=== PATIENT | male | born 1975 | race Hispanic/Latino ===

== ENCOUNTER 2016-11-12 11:55 | Emergency (ER) | payer OTHER ==
[~2016-11-12] VITALS: Ht 165.1 cm; Wt 90.9 kg
[~2016-11-12 11:55] MED LIST: CARAFATE100 MG/ML PO; FLEXERIL10 MG PO; ILOTYCIN1 GM BOTH EYES; LO-DOSE ASPIRIN81 M1 PO; MOTRIN600 MG PO; MUPIROCIN15 GM TP; NICODERM CQ1 EAC1 TD; OXYCONTIN10 MG PO; PANTOPRAZOLE SO40 MG PO; PERCOCET 5/31 TABLET PO; PRILOSEC20 MG PO; PRILOSEC40 MG PO; RANITIDINE HCL150 MG PO; SKELAXIN800 MG PO; ULTRAM50 MG PO; ZANTAC150 MG PO
[2016-11-12] MEDS ORDERED: LO-DOSE ASPIRIN81 M2 PO (13:13)
[2016-11-12 13:38] LABS: HEMATOCRIT 43.4 % (38.0-50.0); MCH 30.9 PG (29.0-34.0); MCHC 34.3 G/DL (30.0-36.0); PLATELET COUNT 339 K/uL (156-360); RBC DIS.WIDTH-CV 12.4 % (11.8-14.6); RBC DIS.WIDTH-SD 41.1 % (39-53); RED BLOOD COUNT 4.82 M/uL (4.00-5.50); WHITE BLOOD COUNT 7.3 K/uL (4.1-10.2)
[2016-11-12 13:48] LABS: CHLORIDE 109 mEq/L (99-109); SODIUM 138 mEq/L (136-147)
[2016-11-12 13:49] LABS: GLUCOSE 103 mg/dL (70-99)
[2016-11-12 13:51] LABS: ANION GAP 10 MEQ/L (2-14)
[2016-11-12 13:53] LABS: GFR ESTIMATE (CALCULATED) > 59 mL/min/
[2016-11-12 13:54] LABS: UREA NITROGEN (BUN) 15 mg/dL (9-23)
[2016-11-12 13:59] LABS: TROP-I INTERPRETATION NEGATIVE; TROPONIN-I 0.02 ng/mL (0.0-0.30)
[2016-11-12] MEDS ORDERED: RANITIDINE HCL150 MG PO (16:14)
[2016-11-12] MEDS ORDERED: PROTONIX40 MG PO (16:15)
[2016-11-12 18:11] VITALS: BP 135/76
== END 2016-11-12 18:17 | disposition left against medical advice (07) ==
LOC: EME 11:55
DX: G45.9 Transient cerebral ischemic attack, unspecified (principal); G43.909 Migraine, unspecified, not intractable, without status migrainosus; F17.200 Nicotine dependence, unspecified, uncomplicated
CPT/HCPCS: 70450; 71010; 71275; 80048; 84484; 85027; 93005; 99281; 99284; J1200; J7030

== ENCOUNTER 2016-11-24 19:05 | Emergency (ER) | payer OTHER ==
[~2016-11-24] VITALS: Ht 165.1 cm; Wt 95.3 kg
[~2016-11-24 19:05] MED LIST changes: +LO-DOSE ASPIRIN81 M2 PO; +PROTONIX40 MG PO
[2016-11-24 19:35] LABS: HEMATOCRIT 43.4 % (38.0-50.0); MCH 31.1 PG (29.0-34.0); MCHC 34.6 G/DL (30.0-36.0); MCV 89.9 FL (86-99); MEAN PLAT.VOLUME 9.1 uM^3 (9.0-12.4); PLATELET COUNT 303 K/uL (156-360); RBC DIS.WIDTH-CV 12.2 % (11.8-14.6); RBC DIS.WIDTH-SD 40.4 % (39-53); RED BLOOD COUNT 4.83 M/uL (4.00-5.50); WHITE BLOOD COUNT 7.4 K/uL (4.1-10.2)
[2016-11-24 19:46] LABS: CHLORIDE 107 mEq/L (99-109); POTASSIUM 3.4 mEq/L (3.7-5.4); SODIUM 139 mEq/L (136-147)
[2016-11-24 19:48] LABS: GLUCOSE 116 mg/dL (70-99)
[2016-11-24 19:49] LABS: ANION GAP 11 MEQ/L (2-14)
[2016-11-24 19:50] LABS: TOTAL BILIRUBIN 0.6 mg/dL (0.0-1.0)
[2016-11-24 19:52] LABS: ALKALINE PHOSPHATASE 72 IU/L (3-129); GFR ESTIMATE (CALCULATED) > 59 mL/min/
[2016-11-24 19:53] LABS: UREA NITROGEN (BUN) 14 mg/dL (9-23)
[2016-11-24] MEDS ORDERED: PANTOPRAZOLE SO40 MG PO (20:04)
[2016-11-24 20:41] LABS: ADD MIUA? YES; BILIRUBIN NEGATIVE; BLOOD SMALL; COLOR COLORLESS ((YELLOW)); GLUCOSE (STRIP) NEGATIVE; KETONES NEGATIVE; LEUKOCYTES NEGATIVE; NITRITE NEGATIVE; PROTEIN (STRIP) NEGATIVE; SPECIFIC GRAVITY 1.003 (1.000-1.030); UROBILINOGEN 0.2 MG/DL (0.2-1.0)
[2016-11-24 20:43] LABS: BACTERIA NONE SEEN /HPF; EPITHELIAL CELLS RARE /HPF; MUCUS NONE SEEN /LPF; RED BLOOD CELLS NONE SEEN /HPF (0-5); UCUL ADDED? NO; WHITE BLOOD CELLS 0-5 /HPF (0-5)
[2016-11-24 20:52] LABS: D-DIMER ELISA 0.36 mg/L FEU (< 0.57)
[2016-11-24 20:56] LABS: LIPASE 27 U/L (1.0-51.0)
[2016-11-24 21:13] LABS: TROP-I INTERPRETATION NEGATIVE; TROPONIN-I < 0.01 ng/mL (0.0-0.30)
[2016-11-24 22:47] LABS: TROP-I INTERPRETATION NEGATIVE; TROPONIN-I < 0.01 ng/mL (0.0-0.30)
[2016-11-25 00:39] VITALS: BP 135/93
== END 2016-11-25 00:40 | disposition home or self-care (01) ==
LOC: EME 19:05
PROVIDERS: Physician Assistant Medical
DX: R10.12 Left upper quadrant pain (principal); K44.9 Diaphragmatic hernia without obstruction or gangrene; F17.200 Nicotine dependence, unspecified, uncomplicated; Z88.5 Allergy status to narcotic agent; Z88.8 Allergy status to other drugs, medicaments and biological substances; Z86.718 Personal history of other venous thrombosis and embolism; K21.9 Gastro-esophageal reflux disease without esophagitis
CPT/HCPCS: 71020; 74177; 80053; 81003; 83690; 84484; 85027; 85379; 93005; 99281; 99284; J1200; J1885; J7030